=== PATIENT | male | born 1965 | race Two or more races ===

== ENCOUNTER 2024-05-20 14:00 | Emergency (ER) | payer MEDICAID, SELFPAY ==
[2024-05-20 14:02] VITALS: PULSE 80; RESP 20; O2SAT 98; BMI 30.9
[2024-05-20 14:16] VITALS: BP 169/93; PULSE 81; RESP 18; TEMP 37.2; O2SAT 96
--- NOTE | 2024-05-20 14:33 | XR_ITS ---
Examination: Forearm, right, 2 views. Technique: Forearm, AP, lateral 2 views Date and time of exam: May 20, 2024 1443 hours INDICATIONS: Pain and swelling in the right forearm beginning 2 days ago FINDINGS: Adequate bone density. No fracture On the lateral view the distal ulna is mildly dorsally positioned, clinical correlation advised Soft tissue swelling dorsum of the hand IMPRESSION: No opaque foreign body
--- NOTE | 2024-05-20 14:33 | XR_ITS ---
Examination: Hand, right 2 views Technique: Hand AP, lateral 2 views Date and time of exam: May 20, 2024 1443 hours INDICATIONS: Right hand pain and swelling this week, no injury FINDINGS: Advanced osteoarthritis first carpometacarpal joint Moderate osteoarthritis remaining carpometacarpal joints Old fracture deformity base proximal phalanx third digit No erosive arthritis No acute fracture Soft tissue swelling dorsum of the hand IMPRESSION: Advanced osteoarthritis first carpometacarpal joint Moderate osteoarthritis remaining carpometacarpal joints No acute fracture Soft tissue swelling dorsum of the hand No cortical bone destruction No opaque foreign body
--- NOTE | 2024-05-20 14:36 | PD.EDRME ---
Rapid Medical Screening Exam RME Arrival date/time: 05/20/24 14:00 58-year-old male reports with complaints of right arm pain swelling and stiffness x 1 day Chief Complaint: Extremity Problem,Nontraumatic Time Seen by Provider: 05/20/24 14:27 Vital signs: Vital Signs Temperature 98.9 F 05/20/24 14:16 Pulse Rate 81 05/20/24 14:16 Respiratory Rate 18 05/20/24 14:16 Blood Pressure 169/93 H 05/20/24 14:16 Pulse Oximetry (%) 96 05/20/24 14:16 Oxygen Delivery Method Room Air 05/20/24 14:16
--- NOTE | 2024-05-20 14:48 | XR_ITS ---
Examination: Duplex scan of the upper extremity, unilateral right complete Date and time of exam: May 20, 2024 1501 hours INDICATIONS: Right arm swelling beginning 3 days ago Technique: Duplex scan of the extremity veins using B-mode/grayscale imaging and Doppler spectral analysis and color flow Attention is directed to internal echogenicity, compression and augmentation involving these veins, color flow assessment, spectral analysis Findings: Major deep venous structures in the extremity demonstrate normal course and caliber. There is no evidence of deep vein thrombosis. Normal color flow and spectral analysis Impression: Negative for DVT..
[2024-05-20] MEDS: oxyCODONE HCL 5 MG IR TAB PO (16:05)
[2024-05-20 16:06] VITALS: BP 175/93; PULSE 77; RESP 15; TEMP 37.5; O2SAT 99
[2024-05-20 16:06] LABS: Basophils # (Auto) 0.1 Thou/mm3 (0.0-0.2); Basophils % (Auto) 1 % (0-2.5); Eosinophils # (Auto) 0.4 Thou/mm3 (0.0-0.5); Eosinophils % (Auto) 4 % (0-10); Hematocrit 44.1 % (41.0-53.0); Hemoglobin 14.7 g/dL (13.5-16.0); Immature Granulocytes % (Auto) 1 % (0-0); Immature Granulocytes Auto 0.05 Thou/mm3 (0.00-0.00); Lymphocytes # (Auto) 1.8 Thou/mm3 (1.0-4.8); Lymphocytes % (Auto) 17 % (10-50); Mean Corpuscular HGB Conc 33.3 g/dl (31.0-37.0); Mean Corpuscular Hemoglobin 30.6 pg (25.0-35.0); Mean Corpuscular Volume 92 fL (80-100); Monocytes # (Auto) 1.2 Thou/mm3 (0.0-0.8); Monocytes % (Auto) 12 % (0-12); Neutrophils # (Auto) 6.8 Thou/mm3 (1.8-7.7); Neutrophils % (Auto) 66 % (37-80); Nucleated Red Blood Cell % 0 /100 WBC (0); Platelet Count 137 Thou/mm3 (140-440); RDW Standard Deviation 42.5 fL (35.1-43.9); Red Blood Count 4.81 Miln/mm3 (4.50-5.90); White Blood Count 10.2 Thou/mm3 (3.8-10.6)
[2024-05-20 16:20] LABS: Uric Acid 6.6 mg/dL (3.7-9.2)
--- NOTE | 2024-05-20 17:50 | PD.EDADULT ---
ED General RME/HPI General Chief complaint: Extremity Problem,Nontraumatic Stated complaint: R ARM SWELLING/PAIN X3 DAYS Time Seen by Provider: 05/20/24 14:27 Arrival date/time: 05/20/24 14:00 CC: Hand and forearm pain HPI right hand and forearm pain onset yesterday, progressive increase in severity the pain is now stiffed the forearm is stiff, the patient has pain with flexion extension of the wrist, and moving of the digits. 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 Insidious onset denies puncture wound repetitive motion. Pain radiates up into his forearm. Currently pain is 4 on a 10 scale when attempting to flex or extend the hand it is an 8 to a 10. Patient denies fever numbness or tingling in the FemHRT fingertips RME / HPI RME / HPI narrative: 05/20/24 14:00 58-year-old male reports with complaints of right arm pain swelling and stiffness x 1 day Related Data Home Medications ?Medication ?Instructions ?Recorded ?Confirmed oxycodone 20 mg tablet,extended 20 mg PO Q12H 10/29/22 10/29/22 release,12 hr Previous Rx's ?Medication ?Instructions ?Recorded oxycodone-acetaminophen 5 mg-325 1 tab PO Q8H PRN pain #7 tabs 11/03/22 mg tablet amoxicillin 875 mg-potassium 1 tab PO BID #14 tabs 05/20/24 clavulanate 125 mg tablet prednisone 20 mg tablet See Taper PO BID 3 days #6 tabs 05/20/24 Allergies Allergy/AdvReac Type Severity Reaction Status Date / Time codeine Allergy Severe UNKNOWN Verified 10/29/22 14:46 ibuprofen Allergy Severe UNKNOWN Verified 10/29/22 14:46 acetaminophen Allergy Unknown Verified 05/20/24 14:10 Review of Systems Review of Systems Narrative Review of Systems: GEN: No fever, no chills, no weight loss EYES: No discharge, no visual changes, no pain HEENT: No ear pain, no congestion, no sore throat PULM: No shortness of breath, no cough, no congestion CV: No chest pain, no dyspnea on exertion, no palpitations GI: No nausea, no vomiting, no diarrhea, no pain, no constipation : No frequency, no urgency, no dysuria MUSC/SKEL: + joint pain, no back pain SKIN: No rash PSYCH: No hallucinations, no depression HEME/LYMPH: No easy bleeding or bruising tendencies NEURO: No weakness, no headache Past Medical History Past Medical History CARDIAC: Negative Cardiac Disorders or Congestive Heart Failure RESPIRATORY: Negative Chronic Obstructive Pulmonary Disease (COPD) or Asthma GENITOURINARY: Negative Renal Disease MUSCULOSKELETAL: Positive Musculoskeletal Disorders, Carpal Tunnel Syndrome and Fractures ENDOCRINE: Negative Diabetes Mellitus Type 1 or Diabetes Mellitus Type 2 HEMATOLOGIC: Negative Sickle Cell Disease OTHER HISTORY: Negative Blood Transfusions, Blood Transfusion Reaction or Anesthesia Reactions Family History FAMILY HISTORY: Positive Family Neurologic Problems (Cousins with cranial aneurysms.) Surgical History SURGICAL: Positive Joint Replacement Social History SMOKING STATUS: Current every day smoker SUBSTANCE USE: marijuana (Occasional) ED Exam Narrative Physical exam: [General: Obese in moderate discomfort but not in any acute distress Head normocephalic HEENT: Within acceptable limits Neck is supple nontender Chest equal chest rise nontender to palpation Respiratory: Clear to auscultation no wheezes crackles or rubs CV: Rate rhythm is regular no murmurs rubs or clicks Abdomen is distended secondary to body habitus soft nontender no masses positive bowel sounds all 4 quadrants Back: No CVA tenderness no spinous process tenderness from cervical spine thoracic and lumbar spine Skin: Right hand: Not erythematous not edematous mildly warm to touch. Skin is intact no petechiae rash induration ulceration or crepitus Extremities: Right hand decreased range of motion secondary to significant dorsal and palmar edema digits are edematous as well. The patient has decreased range of motion of the wrist, flexion extension and rotation with pain radiating up into the forearm the forearm itself is mildly edematous and mildly tender to palpation. No upper arm edema erythema full range of motion of the shoulder. Otherwise moving all other extremities against resistance cap refill less than 2 seconds neurosensory intact Neuro: Awake alert oriented x3 Glascow coma 15 no focal deficits] Course Course Course Narrative: Laboratory results ultrasound shows no acute finding requires emergent or immediate intervention. Is not warm to touch think at this time patient be discharged home on steroids and antibiotics to follow-up with his primary care provider if there is a worsening of symptoms he can return the emergency room for reevaluation. Pt case and pt assessment completed by Dr Roche Quality Measures none Orders Category Date Time Status Saline [Insert IV] NOW Care 05/20/24 17:53 Active US venous doppler UE RT Stat Exams 05/20/24 14:48 Completed XR forearm RT 2V Stat Exams 05/20/24 14:33 Completed XR hand RT 2V Stat Exams 05/20/24 14:33 Completed CBC Stat Lab 05/20/24 15:52 Completed Uric Acid Stat Lab 05/20/24 15:52 Completed Dexamethasone Inj [Decadron Inj] Med 05/20/24 18:40 Discontinued 10 mg IV X1 ONE Piper/Tazo Inj [Zosyn Inj] 3.375 gm Med 05/20/24 17:53 Discontinued Sodium Chloride 0.9% (P) [Ns 0.9% (P)] 50 ml IV X1 hydrALAZINE INJ [Apresoline Inj] Med 05/20/24 19:22 Discontinued 20 mg IV X1 ONE oxyCODONE IR Med 05/20/24 14:40 Discontinued 5 mg PO X1 ONE Vital Signs Vital signs: Vital Signs Temperature 98.9 F 05/20/24 14:16 Pulse Rate 81 05/20/24 14:16 Respiratory Rate 18 05/20/24 14:16 Blood Pressure 169/93 H 05/20/24 14:16 Pulse Oximetry (%) 96 05/20/24 14:16 Oxygen Delivery Method Room Air 05/20/24 14:16 [facility] Patient data External records reviewed:: [facility] previous records Clinical information provided by:: patient Social determinants that could affect healthcare access:: none Patient has the following chronic illnesses:: None How is presenting disease/condition affected by chronic disease/condition?: uneffected by Evaluation data The following diagnostics were reviewed and interpreted by me:: lab results and radiology exam(s) Lab and/or radiology exams considered but not ordered:: CBC shows no leukocytosis anemia thrombocytopenia CMP shows no significant electrolyte imbalances renal impairment transaminitis or T. bili elevation Uric acid is negative Ultrasound is negative for DVT. Interpretation Summary: Patient's feet digits are significantly painful when he tried to extend or flex them is similar to tenosynovitis. However the edema is not erythematous and not warm to touch with no white count. Medications Medications considered but not ordered:: None Medication administrations:: Medication Administration History Discontinued Medications Dexamethasone Sodium Phosphate (Dexamethasone Sod Phos Inj 10 Mg/Ml Vial) 10 mg IV X1 ONE Stop: 05/20/24 18:41 Last Admin: 05/20/24 18:57 Dose: 10 mg Documented By: CS Hydralazine HCl (Hydralazine Inj 20 Mg/Ml Vial) 20 mg IV X1 ONE Stop: 05/20/24 19:23 Last Admin: 05/20/24 19:43 Dose: 20 mg Documented By: CAM Piperacillin Sod/Tazobactam (Sod 3.375 gm/ Sodium Chloride) 50 mls @ 100 mls/hr IV X1 ONE Stop: 05/20/24 18:22 Last Infusion: 05/20/24 18:50 Dose: Infused Documented By: Admin: 05/20/24 18:20 Dose: 100 mls/hr Documented By: CS Oxycodone HCl (Oxycodone Hcl 5 Mg Ir Tab) 5 mg PO X1 ONE Stop: 05/20/24 14:41 Last Admin: 05/20/24 16:05 Dose: 5 mg Documented By: EDUARDO None Consultations Consultation(s) initiated? (list below): No Diagnosis Differential Diagnosis ED Complaint MDM: Cellulitis tenosynovitis abscess DVT Most likely diagnosis given after review of the tests above:: Hand pain hand edema Admission Indicated Admission indicated?: not indicated Explain why admission is indicated or not indicated:: Stable for outpatient Admission Request Was there a request for admission?: No Disposition Plan Disposition Plan: Discharge Discharge Attestation Discharge Attestation: The patient and all family members were given an opportunity to ask questions and understood the discharge instructions. Discharge instructions specifically effects, indications for sooner follow up or return to the emergency department, and the expected course of current diagnosis. Patient condition: Stable Medical Decision Making Differential Diagnosis Differential Diagnosis: Cellulitis tenosynovitis abscess DVT Lab Data 05/20/24 15:52 Labs: Lab Results 05/20/24 Range/Units 15:52 WBC 10.2 (3.8-10.6) Thou/mm3 RBC 4.81 (4.50-5.90) Miln/mm3 Hgb 14.7 (13.5-16.0) g/dL Hct 44.1 (41.0-53.0) % MCV 92 (80-100) fL MCH 30.6 (25.0-35.0) pg MCHC 33.3 (31.0-37.0) g/dl RDW Std Deviation 42.5 (35.1-43.9) fL Plt Count 137 L (140-440) Thou/mm3 Neut % (Auto) 66 (37-80) % Lymph % (Auto) 17 (10-50) % [place] % (Auto) 12 (0-12) % Eos % (Auto) 4 (0-10) % Baso % (Auto) 1 (0-2.5) % Neut # (Auto) 6.8 (1.8-7.7) Thou/mm3 Lymph # (Auto) 1.8 (1.0-4.8) Thou/mm3 [place] # (Auto) 1.2 H (0.0-0.8) Thou/mm3 Eos # (Auto) 0.4 (0.0-0.5) Thou/mm3 Baso # (Auto) 0.1 (0.0-0.2) Thou/mm3 Immature Gran # (Auto) 0.05 H (0.00-0.00) Thou/mm3 Absolute Nucleated RBC 0.00 (0.00-0.00) Thou/mm3 Immature Gran % 1 H (0-0) % Nucleated RBC % 0 (0) /100 WBC Uric Acid 6.6 (3.7-9.2) mg/dL Discharge Plan Plan Patient Disposition: HOME (Self Care) Patient condition on transfer: Stable Prescriptions/Referrals Prescriptions/Med Rec: New prednisone 20 mg tablet See Taper PO BID 3 Days Qty: 6 0RF Taper: Prednisone Taper 20 mg DAILY for 2 Days and 0 Hour 10 mg DAILY for 2 Days and 0 Hour 5 mg DAILY for 7 Days and 0 Hour amoxicillin-pot clavulanate 875-125 mg tablet 1 tab PO BID Qty: 14 0RF No Action oxycodone 20 mg Tablet Extended Release 12 Hr 20 mg PO Q12H oxycodone-acetaminophen 5-325 mg tablet 1 tab PO Q8H MDD 15mg PRN (Reason: pain) Qty: 7 0RF Referrals: MELO WHITESIDE [Referring Provider] - In 1 week No Primary/Family,Physician [Primary Care Provider] - In 1 week Problem List Clinical Impression: Edema of hand, Hand pain Patient/Caregiver Discharge Instructions Other Activity Instructions:: Continue take your OxyContin's at home for pain. Take the medications above as prescribed there is a worsening of symptoms follow-up with the physician listed above or return the emergency room for reevaluation. Education Materials: Exercises Hand Wrist Additional Instructions: Take medication as prescribed if there is a worsening of symptoms return the emergency room for reevaluation. Print Language: Jordanian Stand Alone Forms: [facility]eba Award Info., Patient Portal Info Letter PA/KERRICK KLEANER OPERATOR Supervising Physician PA/KERRICK KLEANER OPERATOR Supervising Physician: Hira Abreu ENP
[2024-05-20 18:14] VITALS: BP 157/88; PULSE 75; RESP 16; TEMP 37.7; O2SAT 98
[2024-05-20] MEDS: PIPER/TAZO INJ 3.375 GM in SODIUM CHLORIDE 0.9% (P) 50 ML IV (18:20)
[2024-05-20] MEDS: DEXAMETHASONE SOD PHOS INJ 10 MG/ML VIAL IV (18:57)
[2024-05-20 19:43] VITALS: BP 220/118; PULSE 92
[2024-05-20] MEDS: hydrALAZINE INJ 20 MG/ML VIAL IV (19:43)
[2024-05-20 20:07] VITALS: BP 140/85; PULSE 87; RESP 19; TEMP 36.6; O2SAT 99
== END 2024-05-20 20:10 | disposition home or self-care (01) ==
PROVIDERS: Physician Assistant; Emergency Provider Emergency Medicine
DX: R60.0 Localized edema (principal); M79.641 Pain in right hand; M79.631 Pain in right forearm
CPT/HCPCS: 36415; 73090; 73120; 84550; 85025; 93971; 96365; 99284; J0360; J1100; J2543; J7050; A9270

== ENCOUNTER 2024-08-31 06:43 | Emergency (ER) | payer MEDICAID, SELFPAY ==
[2024-08-31 06:45] VITALS: BMI 28.3
[2024-08-31 06:47] VITALS: BP 165/80; PULSE 66; RESP 18; TEMP 36.8; O2SAT 98
--- NOTE | 2024-08-31 07:13 | XR_ITS ---
Examination: Hand, left 3 views Technique: Hand AP, oblique, lateral 3 views Date and time of exam: August 31, 2024 at 0616 hours INDICATION: Dogbite to the hand today with pain and swelling. FINDINGS: Soft tissue swelling about the fifth metacarpal with air densities Small chip fracture dorsal base distal phalanx fourth digit which appears old Advanced osteoarthritis first carpometacarpal joint IMPRESSION: Significant soft tissue swelling No opaque foreign body
--- NOTE | 2024-08-31 07:21 | PD.EDANIML ---
ED Animal Bite RME/HPI General Chief Complaint: Animal Bite Stated Complaint: DOG BITE TO LEFT HAND Time Seen by Provider: 08/31/24 06:46 Source: patient Arrival date/time: 08/31/24 06:43 This is a 58-year-old male who reports was walking to his friend's house when a dog bit his left hand. He reports this was a stray dog. Reports biting the dorsum of his left hand. He does have 2 entry wounds to the dorsum of his hand. Complains of pain 8 out of 10. Also admits to being drinking alcohol approximately 8 beers. Currently intoxicated. Denies any other concerns or injuries. Mode of arrival: ambulatory Related Data Home Medications ?Medication ?Instructions ?Recorded ?Confirmed oxycodone 20 mg tablet,extended 20 mg PO Q12H 10/29/22 10/29/22 release,12 hr Previous Rx's ?Medication ?Instructions ?Recorded oxycodone-acetaminophen 5 mg-325 1 tab PO Q8H PRN pain #7 tabs 11/03/22 mg tablet amoxicillin 875 mg-potassium 1 tab PO BID #14 tabs 05/20/24 clavulanate 125 mg tablet amoxicillin 875 mg-potassium 1 tab PO BID 7 days #14 tabs 08/31/24 clavulanate 125 mg tablet Allergies Allergy/AdvReac Type Severity Reaction Status Date / Time codeine Allergy Severe UNKNOWN Verified 08/31/24 06:45 ibuprofen Allergy Severe UNKNOWN Verified 08/31/24 06:45 acetaminophen Allergy Unknown Verified 08/31/24 06:45 Review of Systems Review of Systems Systems Reviewed: All systems reviewed, normal except as documented Narrative Review of Systems: Gen: No fever, no chills, no weight loss EYES: No discharge, no visual changes, no pain HEENT: No ear pain, no congestion, no sore throat PULM: No shortness of breath, no cough, no congestion CV: No chest pain, no dyspnea on exertion, no palpitations GI: No nausea, no vomiting, no diarrhea, no pain, no constipation : No frequency, no urgency,? no dysuria Musc/skel: left hand pain, no back pain Skin: No rash? ED Exam Narrative Physical exam: General: Sittiing in Exam table in no acute distress, answering questions appropriately HENT: normocephalic, atraumatic, EOMI, PERRLA, moist mucous membranes Chest: chest wall is nontender Cardiac: regular rate and rhythm, normal S1 and S2, no murmurs, rubs, or gallops, capillary refill ?2 seconds Pulmonary: clear to auscultation bilaterally, no wheezing, crackles, or rhonchi Abdominal: active bowel sounds, soft, nontender, nondistended Neuro: A&OX3, CN II-XII intact, sensation grossly intact bilaterally in UE and LE. Skin: no rashes, no ecchymosis Ext: LEFT Hand dorsum, two 1 cm open wounds. CMS intact Course Quality Measures none Orders Category Date Time Status Wound Care NOW Care 08/31/24 07:13 Completed sling [Splint / Immobilizer] STAT Care 08/31/24 08:02 Completed XR hand comp LT min 3V Stat Exams 08/31/24 07:13 Completed TET,DIP/PERT AC (Adult)-Tdap [Boostrix Adult (Tdap) Med 08/31/24 07:13 Discontinued Vacc] 0.5 ml IMI .ONCE ONE cefTRIAXone [Rocephin] 1,000 mg Med 08/31/24 07:15 Discontinued Lidocaine 1% 20 ml [Xylocaine 1% 20 ML] 2.1 ml IM X1 Vital Signs Vital signs: Vital Signs Temperature 98.2 F 08/31/24 06:47 Pulse Rate 66 08/31/24 06:47 Respiratory Rate 18 08/31/24 06:47 Blood Pressure 165/80 H 08/31/24 06:47 Pulse Oximetry (%) 98 08/31/24 06:47 Animal Bite MDM Narrative MDM Narrative:: This is a 58-year-old male who reports was walking to his friend's house when a dog bit his left hand. He reports this was a stray dog. Reports biting the dorsum of his left hand. He does have 2 entry wounds to the dorsum of his hand. Wound was irrigated extensively with 500 mL of NS, wounds cleansed with iodine. X-ray obtained to rule out foreign body or fractures. One of the lacerations near the dorsum of the thumb closed with 2 sutures due to uncontrolled bleeding. Bleeding controlled after [address] Other wound will be left open for secondary closure. Patient's wound cleansed, troponin biotic applied fluffy dressing. Updated DT, IM Rocephin. X-ray does not demonstrate foreign body or fractures. Advised will discharge home with antibiotics and pain medication follow-up with PCP advised to refrain from drinking alcohol. Patient data External records reviewed:: [facility] previous records Clinical information provided by:: patient Social determinants that could affect healthcare access:: none Patient has the following chronic illnesses:: alcoholism How is presenting disease/condition affected by chronic disease/condition?: uneffected by Evaluation data The following diagnostics were reviewed and interpreted by me:: radiology exam(s) Lab and/or radiology exams considered but not ordered:: no Interpretation Summary: Examination: Hand, left 3 views Technique: Hand AP, oblique, lateral 3 views Date and time of exam: August 31, 2024 at 0616 hours INDICATION: Dogbite to the hand today with pain and swelling. FINDINGS: Soft tissue swelling about the fifth metacarpal with air densities Small chip fracture dorsal base distal phalanx fourth digit which appears old Advanced osteoarthritis first carpometacarpal joint IMPRESSION: Significant soft tissue swelling No opaque foreign body Medications / Prescriptions Medications or Prescriptions considered but not ordered:: no Medication administrations:: Medication Administration History Discontinued Medications Ceftriaxone Sodium 1,000 mg/ (Lidocaine HCl 2.1 ml) 0 mg IM X1 ONE Stop: 08/31/24 07:16 Last Admin: 08/31/24 07:24 Dose: 1,000 mg Documented By: JENS Diphtheria/Tetanus/Acell Pertussis (Diphth,Pertuss(Acell),Tet Vac 0.5 Ml Syr- Adult) 0.5 ml IMi .ONCE ONE Stop: 08/31/24 07:14 Last Admin: 08/31/24 07:23 Dose: 0.5 ml Documented By: JENS All medications administered and effective Consultations Consultation(s) initiated? (list below): No Diagnosis Differential diagnosis animal bite: bite by animal, cat bite and dog bite Most likely diagnosis given after review of the tests above:: dog bite wound Admission Indicated Admission indicated?: not indicated Admission Request Was there a request for admission?: No Disposition Plan Disposition Plan: Discharge Discharge Attestation Discharge Attestation: The patient and all family members were given an opportunity to ask questions and understood the discharge instructions. Discharge instructions specifically effects, indications for sooner follow up or return to the emergency department, and the expected course of current diagnosis. Patient condition: Stable Discharge Plan Plan Patient Disposition: HOME (Self Care) Patient condition on transfer: Stable Prescriptions/Referrals Prescriptions/Med Rec: New amoxicillin-pot clavulanate 875-125 mg tablet 1 tab PO BID 7 Days Qty: 14 0RF No Action amoxicillin-pot clavulanate 875-125 mg tablet 1 tab PO BID Qty: 14 0RF oxycodone 20 mg Tablet Extended Release 12 Hr 20 mg PO Q12H oxycodone-acetaminophen 5-325 mg tablet 1 tab PO Q8H MDD 15mg PRN (Reason: pain) Qty: 7 0RF Problem List Clinical Impression: Dog bite, Superficial wound due to dog bite Patient/Caregiver Discharge Instructions Education Materials: Animal Bites and Scratches, ED Dog Bite Additional Instructions: 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 Please keep arm elevated, you can keep it in a sling for at least couple days. You have [address] that which will need to be removed in 7 to 14 days. You can do this in your doctor's office Please follow-up for wound recheck in 3 days with your doctor or clinic. When to return to the ED if you have severe pain, swelling worsening symptoms fever. Print Language: Occitan Stand Alone Forms: Beba Award Info., Patient Portal Info Letter PA/ZORAIDA Supervising Physician PA/ZORAIDA Supervising Physician: Dr Patel
[2024-08-31] MEDS: DIPHTH,PERTUSS(ACELL),TET VAC 0.5 ML SYR- ADULT IMi (07:23)
[2024-08-31] MEDS: cefTRIAXone 1,000 MG, LIDOCAINE 1% 20 ML 2.1 ML IM (07:24)
== END 2024-08-31 08:05 | disposition home or self-care (01) ==
LOC: SERX 08:01
PROVIDERS: Emergency Provider Emergency Medicine; PCP Orthopaedic Surgery
DX: S61.452A Open bite of left hand, initial encounter (principal); W54.0XXA Bitten by dog, initial encounter; Z23 Encounter for immunization
CPT/HCPCS: 12001; 73130; 90471; 90715; 96372; 99283; J0696; J3490

== ENCOUNTER 2025-05-21 01:38 | Emergency (ER) | payer MEDICAID, SELFPAY ==
[2025-05-21 01:43] VITALS: PULSE 97; O2SAT 95
[2025-05-21 01:45] VITALS: BP 148/87; PULSE 90; RESP 18; TEMP 36.5; O2SAT 95
[2025-05-21 01:46] VITALS: BMI 32.5
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
[2025-05-21 02:20] VITALS: BP 152/91; PULSE 84; RESP 18; TEMP 36.4; O2SAT 97
--- NOTE | 2025-05-21 04:21 | PRELIM_ITS ---
CT scan of the head without intravenous contrast (axial sections with sagittal and coronal reformats) May 21, 2025 0243 hours Clinical History: Head injury No prior study is available for comparison. Findings: No evidence of intracranial hemorrhage, mass effect or midline shift. The ventricles and CSF spaces are unremarkable. The calvarium is intact. The mastoid air cells and the visualized paranasal sinuses are clear.There is a small soft tissue hematoma in the left parietal scalp. Impression: No evidence of intracranial hemorrhage, midline shift or calvarial fracture. Small soft tissue hematoma in the left parietal scalp. Report Electronically Signed By: Rolando Corral 05/21/2025 4:21:22 AM [EST]
--- NOTE | 2025-05-21 04:27 | PRELIM_ITS ---
CT scan of the cervical spine without intravenous contrast (axial sections with sagittal and coronal reformats) May 21, 2025 0243 hours Clinical History: Trauma Comparison: No prior study is available for comparison. Findings: There is no fracture or traumatic subluxation. There is straightening of the cervical lordosis, which may be due to muscle spasm or patient position. There are multilevel degenerative changes in the form of marginal osteophytes, decreased disc height, uncinate process and facet arthrosis, most prominent at C5-C6 causing mild spinal canal and bilateral neural foraminal narrowing. The prevertebral soft tissues are unremarkable. Impression: No evidence of fracture or traumatic subluxation. Degenerative changes as described above. Report Electronically Signed By: Rolando Corral 05/21/2025 4:27:16 AM [EST]
== END 2025-05-21 04:53 | disposition home or self-care (01) ==
PROVIDERS: Emergency Provider Emergency Medicine; PCP Family Medicine
DX: S00.01XA Abrasion of scalp, initial encounter (principal); S00.03XA Contusion of scalp, initial encounter; S19.9XXA Unspecified injury of neck, initial encounter; Y00.XXXA Assault by blunt object, initial encounter
CPT/HCPCS: 70450; 72125; 99282